=== PATIENT | male | born 1955 | race Caucasian/White ===

== ENCOUNTER 2020-04-23 10:51 | Emergency (ER) | payer OTHER, SELFPAY ==
--- NOTE | ~2020-04-23 | XR_ITS ---
EXAMINATION: XR chest 1V portable EXAM DATE: 04/23/2020 11:41 INDICATION: Shortness of breath, congestion. Headache. History COPD. TECHNIQUE: Portable AP frontal chest x-ray was obtained. Comparison is made to prior examination from 02/07/2019. FINDINGS: The lungs are clear. There are no pleural effusions. There is cardiomegaly. There is no pneumothorax suspected. The bones and soft tissues are unremarkable. IMPRESSION: Cardiomegaly. Reviewed, dictated and finalized at location B. PHONIC NURSE CASE MANAGER IMPRESSION: Cardiomegaly.
--- NOTE | 2020-04-23 10:59 | ECG_ITS ---
Measurements Intervals [place] Rate: 57 P: 34 VT: 145 QRS: -20 QRSD: 102 T: 10 QT: 382 QTc: 374 Interpretive Statements SINUS BRADYCARDIA BORDERLINE R WAVE PROGRESSION, ANTERIOR LEADS BORDERLINE T WAVE ABNORMALITY- ANT/INF LEADS BORDERLINE ECG Electronically Signed On 04-23-2020 11:09:43 FIELD ARTILLERY BASIC by Merlin Tiwari D.O.
[2020-04-23 11:00] VITALS: BP 111/82; PULSE 86; RESP 19; TEMP 36.1; O2SAT 96
[2020-04-23 11:14] LABS: Basophils Absolute Auto 0.1 K/mm3 (0.0-0.1); Basophils Percent Auto 2.2 % (0.2-1.2); Eosinophils Absolute Auto 0.2 K/mm3 (0-0.3); Eosinophils Percent Auto 3.4 % (0-4.4); Hematocrit 44.3 % (42.0-52.0); Hemoglobin 14.8 g/dL (14.0-18.0); Immature Granulocyte Absolute 0.03 K/mm3 (0.00-0.031); Immature Granulocyte Percent A 0.5 % (0-0.5); Lymphocytes Absolute Auto 1.88 K/mm3 (0.9-3.2); Lymphocytes Percent Auto 30.2 % (18.3-44.2); Mean Corpuscular HGB Conc 33.4 g/dl (32-36); Mean Corpuscular Volume 86.9 fl (80-100); Mean Platelet Volume 9.5 fl (7.4-10.4); Monocytes Absolute Auto 0.5 K/mm3 (0.1-0.6); Monocytes Percent Auto 8.2 % (2.6-8.5); Neutrophils Absolute Auto 3.5 K/mm3 (1.3-6.7); Neutrophils Percent Auto 55.5 % (45.5-73.1); Platelet Count Result 199 k/mm3 (150-375); Red Cell Distribution Width 13.6 % (11.5-14.5); White Blood Count 6.2 K/mm3 (4.5-10.0)
[2020-04-23 11:19] VITALS: PULSE 50
[2020-04-23 11:26] LABS: Anion Gap 5 mmol/L (8-16); Blood Urea Nitrogen 17 mg/dL (9-20); Calcium 8.3 mg/dL (8.4-10.2); Carbon Dioxide 25 mmol/L (22-30); Chloride 108 mmol/L (98-107); Estimated CRCL calculation 66 ml/min; Estimated Glomerular Filt Rate > 60; Glucose 93 mg/dL (75-110); Potassium 4.2 mmol/L (3.4-5.0); Sodium 138 mmol/L (137-145)
[2020-04-23 11:46] VITALS: BP 109/74; PULSE 60; RESP 11; O2SAT 94
[2020-04-23 12:16] VITALS: BP 114/78; PULSE 53; RESP 13; O2SAT 94
--- NOTE | 2020-04-23 12:41 | ED.SOB ---
HPI - SOB/Dyspnea General Chief Complaint: Shortness of Breath/Dyspnea Stated Complaint: sob Time Seen by Provider: 04/23/20 11:15 History of Present Illness HPI Narrative: Patient is a 64-year-old male who presents to the ER with complaints of feeling ill. Reports he woke up yesterday and started having body aches. He has had some mild nonproductive cough. No documented fevers or shaking chills. No chest pain or chest pressure. Reports throbbing headache that improves with [id number] medication. No neck pain or numbness or tingling or shooting down his spine. No known sick contacts. Referred here by PCP office because he has history of COPD. He is not oxygen dependent. Related Data Home Medications Medication Instructions Recorded Confirmed budesonide-formoterol HFA 80 2 puff INHALATION Q12H 08/29/19 08/29/19 mcg-4.5 mcg/actuation aerosol inhaler tiotropium bromide 1.25 2 puff INHALATION DAILY 08/29/19 08/29/19 mcg/actuation mist for inhalation Allergies Allergy/AdvReac Type Severity Reaction Status Date / Time azithromycin Allergy Rash Verified 04/23/20 11:20 Influenza Virus Vaccines AdvReac Vomiting Verified 04/23/20 11:20 Review of Systems Review of Systems: All systems reviewed & are unremarkable except as noted in HPI and below Constitutional: Constitutional: Denies chills, Reports fatigue and Denies fever(s) ENT: Reports nasal congestion and Denies sore throat Cardiovascular: Cardiovascular: Denies chest pain, Denies rapid heart rate and Denies radiating jaw, neck or arm pain Respiratory: Respiratory: Reports chest congestion, Reports cough, Denies dyspnea and Denies wheezing Gastrointestinal: Gastrointestinal: Denies abdominal pain, Denies nausea and Denies vomiting [facility] Past Medical History Medical History (Updated 04/23/20 @ 12:46 by Murphy Watt MD) Benign localized prostatic hyperplasia without lower urinary tract symptoms (LUTS) Chronic obstructive pulmonary disease, unspecified GERD with esophagitis Hypothyroidism, unspecified Major depressive disorder, single episode, mild Family History Family History (Updated 10/27/13 @ 07:13 by DOCTOR UNKNOWN) Father Malignant neoplasm of prostate Other Family history of malignant neoplasm Social History Social History Smoking status: Never smoker Second hand tobacco smoke exposure: No Alcohol intake: never Exam Narrative: Exam Narrative: GENERAL: Well-appearing, well-nourished, and in no acute distress. HEAD: Normocephalic, atraumatic. ENT: Mucous membranes moist. Normal-appearing posterior oropharynx. CHEST: Clear to auscultation. No respiratory distress. HEART: Regular rate and rhythm. Normal peripheral pulses. EXTREMITIES: Normal range of motion. No edema. NEURO: Alert and oriented x3. PSYCH: Normal mood and affect. Course Course Emergency Course: Cleanse and negative. Discussed patient should self isolate at home all Covid test is pending. Patient verbalized understanding. Vital Signs Vital signs: Vital Signs Temperature 96.9 F L 04/23/20 11:00 Pulse Rate 86 04/23/20 11:00 Respiratory Rate 19 04/23/20 11:00 Blood Pressure 111/82 04/23/20 11:00 Pulse Oximetry 96 04/23/20 11:00 Temperature 96.9 F L 04/23/20 11:00 Pulse Rate 53 L 04/23/20 12:16 Respiratory Rate 13 04/23/20 12:16 Blood Pressure 114/78 04/23/20 12:16 Pulse Oximetry 94 04/23/20 12:16 MDM - SOB/Dyspnea Lab Data Result diagrams: 04/23/20 11:04 04/23/20 11:04 Labs: Lab Results 04/23/20 04/23/20 04/23/20 Range/Units 11:04 11:04 11:56 WBC 6.2 (4.5-10.0) K/mm3 RBC 5.10 (4.6-6.20) M/mm3 Hgb 14.8 (14.0-18.0) g/dL Hct 44.3 (42.0-52.0) % MCV 86.9 (80-100) fl MCH 29.0 (26-34) pg MCHC 33.4 (32-36) g/dl RDW 13.6 (11.5-14.5) % Plt Count 199 (150-375) k/mm3 MPV 9.5 (7.4-10.4) fl Immature Gran % (Auto) 0.5
[2020-04-23 19:33] LABS: SARS-CoV-2 RNA PCR Negative
== END 2020-04-23 13:04 | disposition home or self-care (01) ==
PROVIDERS: Emergency Medicine; Emergency Provider Emergency Medicine; PCP Internal Medicine
DX: B34.9 Viral infection, unspecified (principal); Z20.822 Contact with and (suspected) exposure to COVID-19; J44.9 Chronic obstructive pulmonary disease, unspecified; N40.0 Benign prostatic hyperplasia without lower urinary tract symptoms; K21.00 Gastro-esophageal reflux disease with esophagitis, without bleeding; E03.9 Hypothyroidism, unspecified; I51.7 Cardiomegaly; R00.1 Bradycardia, unspecified; R94.31 Abnormal electrocardiogram [ECG] [EKG]
CPT/HCPCS: 36415; 71045; 80048; 85025; 87804; 93005; 99283; 99284; C9803; U0003; U0005

== ENCOUNTER → 2022-10-13 11:30 | Outpatient (CLI) | payer MEDICARE, OTHER, SELFPAY ==
--- NOTE | ~2022-10-13 | XR_ITS ---
EXAMINATION: XR knee RT min 4V DATE: 10/13/2022 11:57 INDICATION: Right knee pain. TECHNIQUE: 4 views of right knee were obtained. COMPARISON: None. FINDINGS: Bone alignment is normal. No fracture. There is mild tricompartmental osteoarthritis charac terized by tiny osteophytes. No joint space narrowing. No knee joint effusion. IMPRESSION: 1. Mild right knee osteoarthritis. Reviewed, dictated and finalized at location A.
--- NOTE | ~2022-10-13 | XR_ITS ---
EXAMINATION: XR lumbar spine 2-3V DATE: 10/13/2022 11:57 INDICATION: Lumbago with sciatica, unspecified side. TECHNIQUE: 3 views of lumbar spine were obtained. COMPARISON: Lumbar spine MRI 11/08/2018 FINDINGS: There is 3 degrees dextrocurvature of lumbar spine. There is mild chronic anterior wedging of L1 vertebral body. There is severely decreased disc height at L4-L5 with endplate remodeling. Ther e is multilevel facet joint osteoarthritis, severe bilaterally at L5-S1. IMPRESSION: 1. Severe lumbar spondylosis, stable from 11/08/2018. Reviewed, dictated and finalized at location A.
== END ==
DX: M54.40 Lumbago with sciatica, unspecified side (principal); M47.896 Other spondylosis, lumbar region; M17.11 Unilateral primary osteoarthritis, right knee
CPT/HCPCS: 72100; 73564